=== PATIENT | male | born 1980 | race Caucasian/White ===

== ENCOUNTER 2018-04-01 21:32 | Emergency (ER) | payer MEDICAID, OTHER ==
[~2018-04-01] VITALS: Ht 177.8 cm; Wt 72.6 kg
[2018-04-02 00:48] VITALS: BP 138/99
[2018-04-02] MEDS ORDERED: HYDROcodone-ACET 5/325MG TAB PO ONE (01:00)
[2018-04-02] MEDS ORDERED: DEXAMETHASONE SOD PHOS 10MG/1ML VIAL INJ IM ONE (01:30)
== END 2018-04-02 03:12 | disposition home or self-care (01) ==
LOC: ER 21:40
DX: M62.838 Other muscle spasm (principal)
CPT/HCPCS: 71250; 72125; 74176; 96372; 99284; J1100